=== PATIENT | female | born 1960 | race Caucasian/White ===

== ENCOUNTER 2024-08-22 16:20 | Inpatient (IN) | payer MEDICARE ==
[2024-08-22] MEDS ORDERED: MORPHINE SULFATE 4 MG INJ ONE ×2 (16:35→18:43)
[2024-08-22] MEDS: MORPHINE SULFATE 4 MG INJ IM ONE ×2 (16:36→18:45)
--- NOTE | 2024-08-22 18:40 | ERPHSYRPT ---
- History of Present Illness Source: patient Exam Limitations: no limitations Patient Subjective Stated Complaint: Pt. states, "I tripped over my cat and landed on my right hip. I'm scared. I think its just out of place. I also hit my right elbow." Triage Nursing Assessment: Pt. presents to ER A&Ox3, in obvious distess unable to move right lower extremity. Resp even unlabored. Skin P/WD. Hx Tetanus, Diphtheria Vaccination/Date Given: No Hx Influenza Vaccination/Date Given: No Hx Pneumococcal Vaccination/Date Given: No Immunizations Up to Date: No <LISANDRA BERGERON - Last Filed: 08/22/24 18:38> <ANASTASIA VANG - Last Filed: 08/22/24 22:51> - History of Present Illness Time Seen by Provider: 08/22/24 16:31 Physician History: 63-year-old female with history of hypertension presented in the ER after she tripped over her cat and landed on the right hip and did hit her right elbow. Patient is complaining of moderate to severe sharp pain and is unable to have any weightbearing on the right lower extremity. Pain is exacerbated with minimal movement. No numbness tingling or weakness of lower extremity. Denies any head injury. No loss of consciousness. Patient is very anxious. Minimal pain right elbow with some abrasion and intact range of motion. No injury anywhere else. (LISANDRA BERGERON) Allergies/Adverse Reactions: No Known Drug Allergies Allergy (Verified 08/22/24 17:17) Home Medications: Losartan Potassium 50 mg [Cozaar 50 MG] 1 tab PO DAILY 08/22/24 [History] Travel Risk - International Travel Have you traveled outside of the country in past 3 weeks: No - Emerging Infectious Disease Are you exhibiting symptoms associated with any current EIDs: No <LISANDRA BERGERON - Last Filed: 08/22/24 18:38> - Review of Systems Constitutional: No Symptoms Ears, Nose, & Throat: No Symptoms Respiratory: No Symptoms Cardiac: No Symptoms Abdominal/Gastrointestinal: No Symptoms Genitourinary Symptoms: No Symptoms Musculoskeletal: Injury, Joint Pain Skin: No Symptoms Neurological: No Symptoms Endocrine: No Symptoms Hematologic/Lymphatic: No Symptoms <LISANDRA BERGERON - Last Filed: 08/22/24 18:38> - Past Medical History Pertinent Past Medical History: Yes Neurological History: No Pertinent History ENT History: No Pertinent History Cardiac History: Hypertension Respiratory History: No Pertinent History Endocrine Medical History: No Pertinent History Musculoskeletal History: No Pertinent History GI Medical History: No Pertinent History History: No Pertinent History Psycho-Social History: No Pertinent History Female Reproductive Disorders: No Pertinent History - Past Surgical History Past Surgical History: No Neuro Surgical History: No Pertinent History Cardiac: No Pertinent History Respiratory: No Pertinent History Gastrointestinal: No Pertinent History Genitourinary: No Pertinent History Musculoskeletal: No Pertinent History Female Surgical History: Dilation & Curettage - Social History Smoking Status: Current every day smoker How long have you smoked: 40+ Exposure to second hand smoke: Yes Drug Use: none - Social Determinants of Health Will the patient participate in the screening: Yes Do you worry about a steady place to live?: No Do you have any problems with any of the following?: No known problems In the past 12 months,have you had to go without utilities?: No Transportation Issues: No Has anyone in your support network made you feel unsafe?: No Have you or anyone in your house had to go without enough: No <LISANDRA BERGERON - Last Filed: 08/22/24 18:38> - Physical Exam General Appearance: no apparent distress, alert Eyes, Ears, Nose, Throat Exam: normal ENT inspection Neck Exam: normal inspection, supple, full range of motion Cardiovascular/Respiratory Exam: normal breath sounds, regular rate/rhythm Gastrointestinal/Abdominal Exam: non-tender, soft, no organomegaly Back Exam: normal inspection, normal range of motion Hips Exam: right: limited range of motion, pain, soft tissue tenderness, swelli ng, left: non-tender, normal inspection, normal range of motion Legs Exam: bilateral leg: non-tender, normal inspection, normal range of motion, no evidence of injury Knees Exam: bilateral knee: non-tender, normal inspection, normal range of motion, no evidence of injury, bone tenderness Neuro/Tendon Exam: normal sensation, normal motor functions, No normal tendon functions Mental Status Exam: alert, oriented x 3, cooperative Skin Exam: normal color SpO2 Interpretation: normal SpO2: 99 O2 Delivery: Room Air <LISANDRA BERGERON - Last Filed: 08/22/24 18:38> - Nursing Vital Signs Nursing Vital Signs: Initial Vital Signs Temperature 98.1 F 08/22/24 16:53 Pulse Rate 100 H 08/22/24 16:53 Respiratory Rate 24 08/22/24 16:53 Blood Pressure 148/98 08/22/24 16:53 O2 Sat by Pulse Oximetry 99 08/22/24 16:53 Pain Scale Pain Intensity 5 - CT Exams Lower Extremity CT Interpretation: Tele-radiologist Report (Right hip fracture) <ANASTASIA VANG - Last Filed: 08/22/24 22:51> Ordered Tests: Active Orders 24 hr Category Date Time Status HIP UNI (2V) INCL PEL IF DONE Stat Exams 08/22/24 16:31 Taken LOWER EXTREMITY WO CONTRAST [CT] Stat Exams 08/22/24 19:08 Taken Blood Alcohol [ETHYL ALCOHOL] Stat Lab 08/22/24 19:10 Completed CBC W DIFF Stat Lab 08/22/24 19:10 Completed CMP Stat Lab 08/22/24 19:10 Completed Transfer Order Routine Transfer 08/22/24 Ordered Medication Summary Discontinued Medications Generic Name Dose Route Start Last Admin Trade Name Arabella PRN Reason Stop Dose Admin Hydromorphone HCl 0.5 mg 08/22/24 19:51 08/22/24 19:55 Hydromorphone 1 Mg/1ml Inj IV 08/22/24 19:52 0.5 mg STAT ONE Administration Hydromorphone HCl Confirm 08/22/24 19:53 Hydromorphone 1 Mg/1ml Inj Administered 08/22/24 19:54 Dose 1 mg .ROUTE .STK-MED ONE Morphine Sulfate 4 mg 08/22/24 16:31 08/22/24 16:36 Morphine Sulfate 4 Mg/Ml Injection IM 08/22/24 16:32 4 mg STAT ONE Administration Morphine Sulfate Confirm 08/22/24 16:35 Morphine Sulfate 4 Mg/Ml Injection Administered 08/22/24 16:36 Dose 4 mg .ROUTE .STK-MED ONE Morphine Sulfate 4 mg 08/22/24 18:37 08/22/24 18:45 Morphine Sulfate 4 Mg/Ml Injection IM 08/22/24 18:38 4 mg STAT ONE Administration Morphine Sulfate Confirm 08/22/24 18:43 Morphine Sulfate 4 Mg/Ml Injection Administered 08/22/24 18:44 Dose 4 mg .ROUTE .STK-MED ONE Lab/Rad Data: Laboratory Result Diagrams 08/22/24 19:10 08/22/24 19:10 Laboratory Results 08/22/24 08/22/24 08/22/24 Range/Units 19:10 19:10 19:10 WBC 10.0 (3.98-10.04) x10^3/uL RBC 4.70 (3.93-5.22) x10^6/uL Hgb 13.8 (11.2-15.7) g/dL Hct 40.6 (34.1-44.9) % MCV 86.4 (79.4-94.8) fL MCH 29.4 (25.6-32.2) pg MCHC 34.0 (32.2-35.5) g/dL RDW 13.5 (11.7-14.4) % Plt Count 266 (182-369) x10^3/uL MPV 10.2 (9.4-12.3) fL Gran % 80.5 H (34.0-71.1) % Immature Gran % (Auto) 0.4 (0.001-0.429) % Nucleat RBC Rel Count 0.0 (0.00-0.2) % Eos # (Auto) 0.18 (0.04-0.36) x10^3/uL Immature Gran # (Auto) 0.04 H (0.001-0.031) x10^3u/L Absolute Lymphs (auto) 1.15 L (1.18-3.74) x10^3/uL Absolute Monos (auto) 0.54 (0.24-0.86) x10^3/uL Absolute Nucleated RBC 0.00 (0.00-0.012) x10^3u/L Lymphocytes % 11.5 L (19.3-51.7) % Monocytes % 5.4 (4.7-12.5) % Eosinophils % 1.8 (0.7-5.8) % Basophils % 0.4 (0.1-1.2) % Absolute Granulocytes 8.06 H (1.56-6.13) x10^3/uL Basophils # 0.04 (0.01-0.08) x10^3/uL Sodium 141 (135-145) mmol/L Potassium 4.2 (3.5-5.1) mmol/L Chloride 111 H (98-107) mmol/L Carbon Dioxide 22 (22-30) mmol/L Anion Gap 12.1 (5-15) MEQ/L BUN 12 (7-17) mg/dL Creatinine 1.04 (0.52-1.04) mg/dL Estimated GFR 59.7 ML/MIN Glucose 110 H (74-106) mg/dL Calcium 9.6 (8.4-10.2) mg/dL Total Bilirubin 0.60 (0.2-1.3) mg/dL AST 38 H (14-36) U/L ALT 30 (0-35) U/L Alkaline Phosphatase 109 (38-126) U/L Serum Total Protein 7.5 (6.3-8.2) g/dL Albumin 4.3 (3.5-5.0) g/dL Ethyl Alcohol < 10 (0-10) mg/dL - Progress Counseled pt/family regarding: diagnosis, need for follow-up <LISANDRA BERGERON - Last Filed: 08/22/24 18:38> - Progress Progress: improved <ANASTASIA VANG - Last Filed: 08/22/24 22:51> - Progress Progress Note: Case discussed with Dr. Morocho at 7:[address] Morocho states he will see patient in the morning. Surgery would likely be scheduled for Tuesday. Case discussed with hospitalist who accepts admission at 7:41 PM. 63-year-old female presents to our ED for evaluation status post trip and fall. Patient was at home tripped on her cat fell onto her right side. Right hip x- ray reveals an impacted right femoral neck fracture. CT scan ordered results pending. Laboratory workup ordered results pending. Plan of care discussed with patient. She agrees to admission at [facility] for further evaluation and treatment. Portions of this note were created with voice recognition technology. There may be grammatical, spelling, punctuation or sound alike errors Complexity of problem addressed is moderate acute complicated no critical care time complex of data reviewed and analyzed is extensive. Test ordered chest reviewed results analyzed and correlated clinically with history and physical exam. Risk of complication and or risk of morbidity/mortality of patient management is high. Patient requires hospitalization for further evaluation and treatment. Vital stable. Time spent admit patient approximately 20 minutes. Plan of care established for shared decision making. No social determinants of health present to impede follow-up. Portions of this note were created with voice recognition technology. There may be grammatical, spelling, punctuation or sound alike errors 08/22/24 19:38 08/22/24 19:42 After speaking to patient's family she requested transfer to [facility]. We contacted [place]. I spoke to orthopedist who accepted consult Michelet. He is requesting we contact the hospitalist for transfer to the hospitalist service. I spoke to Dr. Marte at 9:01pm 08/22/24 21:01 Patient changed her mind decided to stay at [facility] for further evaluation and treatment. Patient transferred to the floor 08/22/24 22:46 (ANASTASIA VANG) <LISANDRA BERGERON - Last Filed: 08/22/24 18:38> - Departure Departure Disposition: Observation Critical Care Time: No <ANASTASIA VANG - Last Filed: 08/22/24 22:51> - Departure Clinical Impression: Fall, Hip fracture Condition: Stable Referrals: DOCTOR,NO FAMILY [Primary Care Provider] - Follow up/PCP as directed Additional Instructions: Discharge/Care Plan OLAMIDEMARCUS CATHY was seen on 08/22/24 in the Emergency Room. The patient was counseled regarding Diagnosis,Lab results, Imaging studies, need for follow up a nd when to return to the Emergency Room. Prescriptions given: Discharge Note I have spoken with the patient and/or caregivers. I have explained the patient's condition, diagnosis and treatment plan based on the information available to me at this time. I have answered the patient's and/or caregiver's questions and addressed any concerns. The patient and/or caregivers have as good understanding of the patient's diagnosis, condition and treatment plan as can be expected at this point. The vital signs have been stable. The patient's condition is stable and appropriate for discharge from the emergency department. The patient will pursue further outpatient evaluation with the primary care physician or other designated or consulting physician as outlined in the discharge instructions. The patient and/or caregivers are agreeable to this plan of care and follow-up instructions have been explained in detail. The patient and/or caregivers have received these instruction. The patient/and or caregivers are aware that any significant change in condition or worsening of symptoms should prompt an immediate return to this or the closest emergency department or call 911.
[2024-08-22 19:17] LABS: Absolute Neutrophil Ct (ANC) 8.06 x10^3/uL (1.56-6.13); BASOPHIL % 0.4 % (0.1-1.2); Basophil (Absolute #) 0.04 x10^3/uL (0.01-0.08); Eosinophil % 1.8 % (0.7-5.8); Eosinophil (Absolute #) 0.18 x10^3/uL (0.04-0.36); Hematocrit 40.6 % (34.1-44.9); Hemoglobin 13.8 g/dL (11.2-15.7); IMMATURE GRAN # 0.04 x10^3u/L (0.001-0.031); IMMATURE GRAN % 0.4 % (0.001-0.429); Lymphocyte (Absolute #) 1.15 x10^3/uL (1.18-3.74); Lymphocytes % 11.5 % (19.3-51.7); Mean Cell Volume 86.4 fL (79.4-94.8); Mean Corpuscular Hemoglobin 29.4 pg (25.6-32.2); Mean Platelet Volume 10.2 fL (9.4-12.3); Monocyte (Absolute #) 0.54 x10^3/uL (0.24-0.86); Monocytes % 5.4 % (4.7-12.5); Neutrophil % 80.5 % (34.0-71.1); Platelet Count 266 x10^3/uL (182-369); Red Cell Distribution Width 13.5 % (11.7-14.4)
[2024-08-22 19:32] LABS: ALBUMIN 4.3 g/dL (3.5-5.0); ANION GAP 12.1 MEQ/L (5-15); BILIRUBIN,TOTAL 0.6 mg/dL (0.2-1.3); Calcium 9.6 mg/dL (8.4-10.2); Creatinine 1 1.04 mg/dL (0.52-1.04); EST GLOMERULAR FILTRATION RATE 59.7 ML/MIN; Potassium 4.2 mmol/L (3.5-5.1); Total Protein 7.5 g/dL (6.3-8.2)
[2024-08-22] MEDS ORDERED: Hydromorphone 1 mg/ml Injection ONE (19:53)
[2024-08-22] MEDS: Hydromorphone 1 mg/ml Injection IV ONE (19:55)
[2024-08-22] MEDS ORDERED: MORPHINE SULFATE 2 MG INJ IV PRN (23:59)
[2024-08-23] MEDS ORDERED: MILK OF MAGNESIA 30 ML PO PRN
[2024-08-23] MEDS ORDERED: Docusate Sodium 100 MG PO PRN
[2024-08-23] MEDS ORDERED: Zofran 4 MG/2 ML VIAL IV PRN
--- NOTE | 2024-08-23 00:26 | PCM.HP ---
History of Present Illness - Chief Complaint Chief Complaint: Hip fracture, fall Date: 08/22/24 History of Present Illness: is a 63 year old female with a history of hypertension who presented in the ER after she tripped over her cat and landed on the right hip and did hit her right elbow. The patient was complaining of moderate to severe sharp pain and is unable to have any weightbearing on the right lower extremity. Pain is exacerbated with minimal movement. No numbness tingling or weakness of lower extremity. Denies any head injury. No loss of consciousness. Patient is very anxious. Minimal pain right elbow with some abrasion and intact range of motion. No injury anywhere else was noted. The patient denied chest pain or dyspnea. The patient was accompanied by her at bedside during my assessment. - Review of Systems Constitutional: No Symptoms Eyes: No Symptoms Ears, Nose, & Throat: No Symptoms Respiratory: No Symptoms Cardiac: No Symptoms Abdominal/Gastrointestinal: No Symptoms Genitourinary Symptoms: No Symptoms Musculoskeletal: Fall, Injury, Joint Pain, Joint Swelling Neurological: No Symptoms Psychological: No Symptoms Endocrine: No Symptoms Hematologic/Lymphatic: No Symptoms Immunological/Allergic: No Symptoms All Other Systems: Reviewed and Negative Medications & Allergies Home Medications: Home Medication List Losartan Potassium 50 mg [Cozaar 50 MG] 1 tab PO DAILY 08/22/24 [History Confirmed 08/22/24] Allergies/Adverse Reactions: Allergies Allergy/AdvReac Type Severity Reaction Status Date / Time No Known Drug Allergies Allergy Verified 08/22/24 17:17 - Past Medical History Past Medical History: Yes Neurological History: No Pertinent History ENT History: No Pertinent History Cardiac History: Hypertension Respiratory History: No Pertinent History Endocrine Medical History: No Pertinent History Musculoskelatal History: No Pertinent History GI Medical History: No Pertinent History History: No Pertinent History Pyscho-Social History: No Pertinent History Reproductive Disorders: No Pertinent History - Past Surgical History Past Surgical History: No Neuro Surgical History: No Pertinent History Cardiac History: No Pertinent History Respiratory Surgery: No Pertinent History GI Surgical History: No Pertinent History Genitourinary Surgical Hx: No Pertinent History Musculskeletal Surgical Hx: No Pertinent History Female Surgical History: Dilation & Curettage Family History: Patient's father had heart disease in his 60s. - Social History Smoking Status: Former smoker How long have you smoked: 40+ Exposure to second hand smoke: Yes Alcohol: Daily Drug Use: none - Social Determinants of Health Will the patient participate in the screening: Yes Do you worry about a steady place to live?: No Do you have any problems with any of the following?: No known problems In the past 12 months,have you had to go without utilities?: No Have you or anyone in your house had to go without enough: No Transportation Issues: No Has anyone in your support network made you feel unsafe?: No Does the patient want assistance with any of the above?: No - Physical Exam Vital Signs: Vital Signs - 24 hr Temp Pulse Resp BP Pulse Ox 08/22/24 23:17 98.5 F 72 16 166/83 96 08/22/24 23:13 98.1 F 84 18 144/84 98 08/22/24 22:00 84 18 144/84 98 08/22/24 21:00 86 18 169/87 98 08/22/24 20:00 81 18 178/95 99 08/22/24 19:21 72 18 180/88 99 08/22/24 18:40 99 08/22/24 16:53 98.1 F 100 H 24 148/98 99 General Appearance: no apparent distress, alert Neurologic Exam: alert, oriented x 3, cooperative, data operations manager II-XII nml as tested, nor mal mood/affect, nml cerebellar function Eye Exam: PERRL/EOMI, eyes nml inspection Ears, Nose, Throat Exam: normal ENT inspection Neck Exam: normal inspection, non-tender, supple, full range of motion Respiratory Exam: normal breath sounds, lungs clear Cardiovascular Exam: regular rate/rhythm, normal heart sounds Gastrointestinal/Abdomen Exam: soft, normal bowel sounds Back Exam: normal range of motion Extremity Exam: normal inspection, limited range of motion Skin Exam: normal color Results - Labs Lab/Micro Results: Lab Results-Last 24 Hours 08/22/24 08/22/24 08/22/24 Range/Units 19:10 19:10 19:10 WBC 10.0 (3.98-10.04) x10^3/uL RBC 4.70 (3.93-5.22) x10^6/uL Hgb 13.8 (11.2-15.7) g/dL Hct 40.6 (34.1-44.9) % MCV 86.4 (79.4-94.8) fL MCH 29.4 (25.6-32.2) pg MCHC 34.0 (32.2-35.5) g/dL RDW 13.5 (11.7-14.4) % Plt Count 266 (182-369) x10^3/uL MPV 10.2 (9.4-12.3) fL Gran % 80.5 H (34.0-71.1) % Immature Gran % (Auto) 0.4 (0.001-0.429) % Nucleat RBC Rel Count 0.0 (0.00-0.2) % Eos # (Auto) 0.18 (0.04-0.36) x10^3/uL Immature Gran # (Auto) 0.04 H (0.001-0.031) x10^3u/L Absolute Lymphs (auto) 1.15 L (1.18-3.74) x10^3/uL Absolute Monos (auto) 0.54 (0.24-0.86) x10^3/uL Absolute Nucleated RBC 0.00 (0.00-0.012) x10^3u/L Lymphocytes % 11.5 L (19.3-51.7) % Monocytes % 5.4 (4.7-12.5) % Eosinophils % 1.8 (0.7-5.8) % Basophils % 0.4 (0.1-1.2) % Absolute Granulocytes 8.06 H (1.56-6.13) x10^3/uL Basophils # 0.04 (0.01-0.08) x10^3/uL Sodium 141 (135-145) mmol/L Potassium 4.2 (3.5-5.1) mmol/L Chloride 111 H (98-107) mmol/L Carbon Dioxide 22 (22-30) mmol/L Anion Gap 12.1 (5-15) MEQ/L BUN 12 (7-17) mg/dL Creatinine 1.04 (0.52-1.04) mg/dL Estimated GFR 59.7 ML/MIN Glucose 110 H (74-106) mg/dL Calcium 9.6 (8.4-10.2) mg/dL Total Bilirubin 0.60 (0.2-1.3) mg/dL AST 38 H (14-36) U/L ALT 30 (0-35) U/L Alkaline Phosphatase 109 (38-126) U/L Serum Total Protein 7.5 (6.3-8.2) g/dL Albumin 4.3 (3.5-5.0) g/dL Ethyl Alcohol < 10 (0-10) mg/dL - Radiology Impressions Radiology Exams & Impressions: Radiology Procedures Category Date Time Status HIP UNI (2V) INCL PEL IF DONE Stat Exams 08/22/24 16:31 Taken LOWER EXTREMITY WO CONTRAST [CT] Stat Exams 08/22/24 19:08 Taken - Other Procedures and Tests Respiratory Therapy 08/22/24 23:59 Incentive Spirometry TID Assessment/Plan (1) Hip fracture Current Visit: Yes Status: Acute Assessment & Plan: Dr. Morocho plans to operate on Tuesday. Bedrest. Analgesia. Incentive spirometry. Code(s): S72.009A - FRACTURE OF UNSP PART OF NECK OF UNSP FEMUR, INIT (2) Hip pain, right Current Visit: Yes Status: Acute Assessment & Plan: Analgesia. Code(s): M25.551 - PAIN IN RIGHT HIP (3) Essential (primary) hypertension Current Visit: Yes Status: Acute Assessment & Plan: Continue losartan. Monitor BP. Code(s): I10 - ESSENTIAL (PRIMARY) HYPERTENSION (4) Fall Current Visit: Yes Status: Acute Assessment & Plan: Bedrest for now. Will need eventual PT/OT assessment. Code(s): W19.XXXA - UNSPECIFIED FALL, INITIAL ENCOUNTER Telemedicine Encounter - Telemedicine Encounter Telemedicine Encounter: "The entirety of this encounter was performed via Telemedicine" This visit was performed using real-time audio and video connection between my location and thepatients locationwith the assistance of a surrogateat the patients location. Written or verbal consent was obtained from the patient/guardian to perform this visit using[facility] technology. Any patient questions regarding the telemedicine interaction were answered.
[2024-08-23] MEDS: NORCO 5/325 MG PO PRN (05:02)
[2024-08-23 05:26] LABS: Absolute Neutrophil Ct (ANC) 4.34 x10^3/uL (1.56-6.13); BASOPHIL % 0.5 % (0.1-1.2); Basophil (Absolute #) 0.03 x10^3/uL (0.01-0.08); Eosinophil (Absolute #) 0.18 x10^3/uL (0.04-0.36); Hematocrit 39.8 % (34.1-44.9); Hemoglobin 13.2 g/dL (11.2-15.7); IMMATURE GRAN # 0.02 x10^3u/L (0.001-0.031); IMMATURE GRAN % 0.3 % (0.001-0.429); Lymphocyte (Absolute #) 0.98 x10^3/uL (1.18-3.74); Lymphocytes % 16.1 % (19.3-51.7); Mean Cell Volume 86.5 fL (79.4-94.8); Mean Corpuscular Hemoglobin 28.7 pg (25.6-32.2); Mean Corpuscular Hgb Concent. 33.2 g/dL (32.2-35.5); Mean Platelet Volume 10.5 fL (9.4-12.3); Monocyte (Absolute #) 0.55 x10^3/uL (0.24-0.86); Neutrophil % 71.1 % (34.0-71.1); Platelet Count 255 x10^3/uL (182-369); Red Cell Distribution Width 14.2 % (11.7-14.4); White Blood Count 6.1 x10^3/uL (3.98-10.04)
[2024-08-23 05:58] LABS: ALBUMIN 3.9 g/dL (3.5-5.0); ANION GAP 11.9 MEQ/L (5-15); BILIRUBIN,TOTAL 0.7 mg/dL (0.2-1.3); Calcium 9.2 mg/dL (8.4-10.2); Creatinine 1 1.14 mg/dL (0.52-1.04); EST GLOMERULAR FILTRATION RATE 53.4 ML/MIN; Total Protein 6.9 g/dL (6.3-8.2)
[2024-08-23] MEDS ORDERED: TYLENOL 325 MG PO PRN ×2 (08:02)
[2024-08-23 08:20] VITALS: RESP 17; TEMP 97.7
--- NOTE | 2024-08-23 08:37 | XRAY ---
Indication: Right hip pain following fall. Comparison: None AP pelvis and 2 view right hip demonstrates nondisplaced right femur subcapital fracture. Elsewhere osteopenia and mild lower lumbar degenerative spondylosis. No other bony, articular, or soft tissue abnormalities.
--- NOTE | 2024-08-23 08:39 | XRAY ---
Indication: Fracture. Pain. Multiple contiguous axial images obtained through the right hip. Sagittal and coronal reformatted images obtained. Comparison: None Osseous structures demineralized consistent with patient's age. Right hip articulation intact. Right femur head demonstrates minimally depressed subcapital cortical fracture laterally. Elsewhere osteopenia and tiny spurring greater trochanter. No other acute fracture or suspicious bony lesions. Visualized noncontrasted soft tissues demonstrates minimal common femoral artery calcifications. No focal solid/cystic soft tissue mass or abnormal fluid collection. Impression: 1. Femur head subcapital cortical fracture as detailed. 2. Chronic findings including osteopenia, spurring greater trochanter, and minimal vascular calcifications.
[2024-08-23] MEDS ORDERED: ENOXAPARIN SODIUM SQ SCH (10:00)
[2024-08-23] MEDS: ENOXAPARIN SODIUM SQ SCH (10:32)
[2024-08-23] MEDS: Cozaar 50 MG PO SCH (10:32)
[2024-08-23] MEDS ORDERED: VALIUM 10 MG/2 ML SYRINGE IV PRN (10:42)
[2024-08-23] MEDS: VITAMIN B-1 100 MG PO SCH (10:49)
[2024-08-23] MEDS: FOLATE 1 MG PO SCH (10:49)
[2024-08-23] MEDS: THERAGRAN MULTIVITAMIN PO SCH (10:49)
--- NOTE | 2024-08-23 12:37 | PCM.DS ---
Discharge Summary Date of Admission: 08/22/24 22:50 Date of Discharge: 08/23/24 Admitting Physician: HUI DUENAS MD Consults: Consults on Case 08/23/24 00:00 Consult Ortho ROUTINE Primary Care Provider: NO FAMILY DOCTOR Allergies Allergies No Known Drug Allergies Allergy (Verified 08/22/24 17:17) Hospital Summary - Hospital Course Hospital Course: is a 63 year old female with a history of hypertension and chronic alcohol use of > 6 beers per day. She presented in the ER on 08/22/24 after she tripped over her cat and landed on the right hip and did hit her right elbow. The patient was complaining of moderate to severe sharp pain and is unable to have any weightbearing on the right lower extremity. Pain is exacerbated with minimal movement. No numbness tingling or weakness of lower extremity. Denies any head injury. No loss of consciousness. Patient is very anxious. Minimal pain right elbow with some abrasion and intact range of motion- she refused XR of right elbow. No injury anywhere else was noted. The patient denied chest pain or dyspnea. Ortho came to see pt today and plan for for surgery tomorrow. However, ortho became ill and pt will need to be transferred where ortho is available. [facility] has [facility]. Discussed plan with pt and she is ok with transfer. Pt placed on alcohol withdrawal protocol. Her pain is well controlled and she denies any further concerns at this time. - Vitals & Intake/Output Vital Signs: Vital Signs Temperature 97.7 F 08/23/24 08:20 Pulse Rate 69 08/23/24 08:20 Respiratory Rate 17 08/23/24 08:20 Blood Pressure 153/74 08/23/24 08:20 O2 Sat by Pulse Oximetry 92 L 08/23/24 08:20 Intake & Output: Intake & Output 08/21/24 08/22/24 08/23/24 08/24/24 11:59 11:59 11:59 11:59 Intake Total 0 60 Balance 0 60 Weight 74.843 kg - Lab Result Diagrams: 08/23/24 04:35 08/23/24 04:35 Lab Results-Last 24 Hrs: Lab Results-Last 24 Hours 08/22/24 08/22/24 08/22/24 Range/Units 19:10 19:10 19:10 WBC 10.0 (3.98-10.04) x10^3/uL RBC 4.70 (3.93-5.22) x10^6/uL Hgb 13.8 (11.2-15.7) g/dL Hct 40.6 (34.1-44.9) % MCV 86.4 (79.4-94.8) fL MCH 29.4 (25.6-32.2) pg MCHC 34.0 (32.2-35.5) g/dL RDW 13.5 (11.7-14.4) % Plt Count 266 (182-369) x10^3/uL MPV 10.2 (9.4-12.3) fL Gran % 80.5 H (34.0-71.1) % Immature Gran % (Auto) 0.4 (0.001-0.429) % Nucleat RBC Rel Count 0.0 (0.00-0.2) % Eos # (Auto) 0.18 (0.04-0.36) x10^3/uL Immature Gran # (Auto) 0.04 H (0.001-0.031) x10^3u/L Absolute Lymphs (auto) 1.15 L (1.18-3.74) x10^3/uL Absolute Monos (auto) 0.54 (0.24-0.86) x10^3/uL Absolute Nucleated RBC 0.00 (0.00-0.012) x10^3u/L Lymphocytes % 11.5 L (19.3-51.7) % Monocytes % 5.4 (4.7-12.5) % Eosinophils % 1.8 (0.7-5.8) % Basophils % 0.4 (0.1-1.2) % Absolute Granulocytes 8.06 H (1.56-6.13) x10^3/uL Basophils # 0.04 (0.01-0.08) x10^3/uL Sodium 141 (135-145) mmol/L Potassium 4.2 (3.5-5.1) mmol/L Chloride 111 H (98-107) mmol/L Carbon Dioxide 22 (22-30) mmol/L Anion Gap 12.1 (5-15) MEQ/L BUN 12 (7-17) mg/dL Creatinine 1.04 (0.52-1.04) mg/dL Estimated GFR 59.7 ML/MIN Glucose 110 H (74-106) mg/dL Calcium 9.6 (8.4-10.2) mg/dL Total Bilirubin 0.60 (0.2-1.3) mg/dL AST 38 H (14-36) U/L ALT 30 (0-35) U/L Alkaline Phosphatase 109 (38-126) U/L Serum Total Protein 7.5 (6.3-8.2) g/dL Albumin 4.3 (3.5-5.0) g/dL Ethyl Alcohol < 10 (0-10) mg/dL 08/23/24 08/23/24 08/23/24 Range/Units 04:35 04:35 11:08 WBC 6.1 (3.98-10.04) x10^3/uL RBC 4.60 (3.93-5.22) x10^6/uL Hgb 13.2 (11.2-15.7) g/dL Hct 39.8 (34.1-44.9) % MCV 86.5 (79.4-94.8) fL MCH 28.7 (25.6-32.2) pg MCHC 33.2 (32.2-35.5) g/dL RDW 14.2 (11.7-14.4) % Plt Count 255 (182-369) x10^3/uL MPV 10.5 (9.4-12.3) fL Gran % 71.1 (34.0-71.1) % Immature Gran % (Auto) 0.3 (0.001-0.429) % Nucleat RBC Rel Count 0.0 (0.00-0.2) % Eos # (Auto) 0.18 (0.04-0.36) x10^3/uL Immature Gran # (Auto) 0.02 (0.001-0.031) x10^3u/L Absolute Lymphs (auto) 0.98 L (1.18-3.74) x10^3/uL Absolute Monos (auto) 0.55 (0.24-0.86) x10^3/uL Absolute Nucleated RBC 0.00 (0.00-0.012) x10^3u/L Lymphocytes % 16.1 L (19.3-51.7) % Monocytes % 9.0 (4.7-12.5) % Eosinophils % 3.0 (0.7-5.8) % Basophils % 0.5 (0.1-1.2) % Absolute Granulocytes 4.34 (1.56-6.13) x10^3/uL Basophils # 0.03 (0.01-0.08) x10^3/uL Sodium 139 (135-145) mmol/L Potassium 4.0 (3.5-5.1) mmol/L Chloride 109 H (98-107) mmol/L Carbon Dioxide 22 (22-30) mmol/L Anion Gap 11.9 (5-15) MEQ/L BUN 12 (7-17) mg/dL Creatinine 1.14 H (0.52-1.04) mg/dL Estimated GFR 53.4 ML/MIN Glucose 118 H (74-106) mg/dL Calcium 9.2 (8.4-10.2) mg/dL Total Bilirubin 0.70 (0.2-1.3) mg/dL AST 32 (14-36) U/L ALT 26 (0-35) U/L Alkaline Phosphatase 94 (38-126) U/L Serum Total Protein 6.9 (6.3-8.2) g/dL Albumin 3.9 (3.5-5.0) g/dL Ethyl Alcohol < 10 (0-10) mg/dL - Radiology Exams Ordered Rad Exams-Entire Visit: Radiology Procedures Category Date Time Status HIP UNI (2V) INCL PEL IF DONE Stat Exams 08/22/24 16:31 Completed LOWER EXTREMITY WO CONTRAST [CT] Stat Exams 08/22/24 19:08 Completed - Procedures and Test Procedures and Tests throughout Hospitalization: Therapy Orders & Screens 08/22/24 23:59 Incentive Spirometry TID Comment: Diagnosis: Hip fracture, fall 08/23/24 00:00 PT Eval & Treat (MD Order) ONCE Reason for Eval:: hip fracture Diagnosis: Hip fracture, fall OT Eval and Treat (MD Order) ONCE Comment: Physician Instructions: Reason For Exam: Diagnosis: Hip fracture, fall Discharge Exam General Appearance: no apparent distress, alert Neurologic Exam: alert, oriented x 3, cooperative, normal mood/affect, nml cerebellar function, sensation nml, No motor deficits Eye Exam: PERRL, EOMI, eyes nml inspection Ears, Nose, Throat Exam: normal ENT inspection, pharynx normal, moist mucous membranes Neck Exam: normal inspection, non-tender, supple, full range of motion Respiratory Exam: normal breath sounds, lungs clear, No respiratory distress Cardiovascular Exam: regular rate/rhythm, normal heart sounds Gastrointestinal/Abdomen Exam: soft, No tenderness, No mass Pelvic Exam: deferred Rectal Exam: deferred Back Exam: normal inspection, normal range of motion, No CVA tenderness, No vertebral tenderness Extremity Exam: limited range of motion (right hip, right elbow) Skin Exam: normal color, warm, dry, other (abrasion right knee) Final Diagnosis/Problem List - Final Discharge Diagnosis/Problem (1) Hip pain, right Current Visit: Yes Status: Acute Assessment & Plan: - CT lower extremity and HIP XR show fx - ortho consult - narcotic pain meds PRN - Ice pack - bed rest - tele Code(s): M25.551 - PAIN IN RIGHT HIP (2) Hip fracture Current Visit: Yes Status: Acute Assessment & Plan: - radiology records reviewed- no hip fx seen but will consult ortho - Ortho consult Code(s): S72.009A - FRACTURE OF UNSP PART OF NECK OF UNSP FEMUR, INIT (3) Fall Current Visit: Yes Status: Acute Assessment & Plan: - Pt states she tripped over cat while having slick ugg shoes on. - PT eval Code(s): W19.XXXA - UNSPECIFIED FALL, INITIAL ENCOUNTER (4) Right elbow pain Current Visit: Yes Status: Acute Assessment & Plan: - after fall, refuses XR for further eval, wrapped by nursing - RICE techniques Code(s): M25.521 - PAIN IN RIGHT ELBOW (5) Alcohol abuse Current Visit: Yes Status: Chronic Assessment & Plan: - alcohol withdrawal protocol - alcohol level < 10 - Tele Code(s): F10.10 - ALCOHOL ABUSE, UNCOMPLICATED (6) DAVID (acute kidney injury) Current Visit: Yes Status: Acute Assessment & Plan: - Creat 1.14- encouraged oral intake d/t hospital fluid shortage - may be 2:2 alcohol use Code(s): N17.9 - ACUTE KIDNEY FAILURE, UNSPECIFIED (7) Essential (primary) hypertension Current Visit: Yes Status: Chronic Assessment & Plan: - continue home meds - BP controlled Code(s): I10 - ESSENTIAL (PRIMARY) HYPERTENSION (8) Femur fracture, right Current Visit: Yes Status: Acute Code(s): S72.91XA - UNSP FRACTURE OF RIGHT FEMUR, INIT FOR CLOS FX - Discharge Discharge Date: 08/23/24 Disposition: DC TO [facility] Condition: Stable Prescriptions: Continue Losartan Potassium 50 mg [Cozaar 50 MG] 1 tab PO DAILY Follow up with: DOCTOR,NO FAMILY [Primary Care Provider] -
[2024-08-23 16:31] VITALS: BP 169/85; PULSE 61; O2SAT 96
--- NOTE | 2024-08-23 18:02 | CONS ---
REASON FOR CONSULT: Right hip pain. HISTORY: This 63-year-old female was admitted to [facility] yesterday with right hip pain. She had come to the ER with hip pain after a fall at home, tripped over a cat. Pain exacerbated with movement. Patient denied numbness, tingling, or head injury; denied loss of consciousness. Patient was evaluated in the emergency room, had x-rays and CT scan, was diagnosed with femoral neck fracture and admitted. PAST MEDICAL HISTORY: Hypertension. PAST SURGICAL HISTORY: D and C. HOME MEDICATIONS: Losartan 50 mg daily. ALLERGIES: No known medical allergies. FAMILY HISTORY: Paternal heart disease. SOCIAL HISTORY: . Former smoker. REVIEW OF SYSTEMS: Negative for constitutional, eyes, throat, respiratory, cardiac, abdominal, symptoms, neurologic, psychologic, endocrine, lymphatic, immunologic, but positive for joint pain of the right hip. Patient denies prior fractures, but does state family history of calcium problem in her sister. LAB DATA AND TESTS: WBC 10.0, hemoglobin 13.8, hematocrit 40.6, platelets 266. Sodium 141, potassium 4.2, CO2 of 22, BUN 12, creatinine 1.04. X-rays of right hip show right femoral neck fracture. CT scan of right hip confirms femoral neck fracture with impaction and without displacement in an anterior or posterior direction. PHYSICAL EXAMINATION: GENERAL: Patient evaluated in her hospital room, supine in bed, awake, alert, oriented. CHEST: Normal breath sounds. Lungs clear. CARDIOVASCULAR: Regular rate and rhythm. Normal heart sounds. ABDOMEN: Soft, normal bowel sounds. EXTREMITIES: Patient moves upper extremities without difficulty or pain. Patient's right lower extremity movement is limited by pain in the right hip. She is able to dorsiflex and plantar flex her right ankle without difficulty. IMPRESSION: Impacted femoral neck fracture.
== END 2024-08-23 16:18 | disposition home or self-care (01) | DRG 534 ==
LOC: ED 16:20 → MED SURG 22:50 → OBSVTOIN 22:50
PROVIDERS: ADMIT Internal Medicine; ATTEND Internal Medicine
DX: S72.91XA Unspecified fracture of right femur, initial encounter for closed fracture (principal); N17.9 Acute kidney failure, unspecified; M25.551 Pain in right hip; W19.XXXA Unspecified fall, initial encounter; M25.521 Pain in right elbow; F10.10 Alcohol abuse, uncomplicated; I10 Essential (primary) hypertension; Z79.899 Other long term (current) drug therapy
CPT/HCPCS: 36415; 73502; 73700; 80053; 82077; 85025; 96372; 96374; 99285; Q3014; 96375; J1171; J1650; J2270; A9270-GY